=== PATIENT | female | born 1985 | race Caucasian/White ===

== ENCOUNTER 2017-06-25 17:59 | Emergency (ER) | payer OTHER, MEDICAID ==
[~2017-06-25] VITALS: Ht 162.6 cm; Wt 93.0 kg
[~2017-06-25 17:59] MED LIST: ACETAMINOPHEN-1 EAC1 PO; NAPROSYN500 MG PO; PHENERGAN 25 MG25 MG PO; PREDNISONE 20 M20 MG PO; PROAIR HFA8.5 GM INH; PROMETHAZINE D480 ML PO; ZPAK PO
[2017-06-25 18:09] VITALS: BP 134/83
[2017-06-25] MEDS ORDERED: PROMETHAZINE V473 ML PO (18:26)
[2017-06-25] MEDS ORDERED: ACETAMINOPHEN-1 EAC1 PO (18:26)
[2017-06-25] MEDS ORDERED: PROAIR HFA8.5 GM INH (18:26)
[2017-06-25] MEDS ORDERED: TESSALON PERLE100 MG PO (18:26)
[2017-06-25] MEDS ORDERED: CLARITIN10 MG PO (18:27)
== END 2017-06-25 18:37 | disposition home or self-care (01) ==
LOC: M.ERS 17:59
DX: J06.9 Acute upper respiratory infection, unspecified (principal); B97.89 Other viral agents as the cause of diseases classified elsewhere; Z98.890 Other specified postprocedural states; Z88.1 Allergy status to other antibiotic agents

== ENCOUNTER 2017-07-15 20:10 | Emergency (ER) | payer OTHER, MEDICAID ==
[~2017-07-15] VITALS: Ht 160 cm; Wt 93.0 kg
[~2017-07-15 20:10] MED LIST changes: +CLARITIN10 MG PO; +PROMETHAZINE V473 ML PO; +TESSALON PERLE100 MG PO
[2017-07-15 20:23] VITALS: BP 131/88
[2017-07-15] MEDS ORDERED: SSD CREAM 1% 5050 GM TOP (20:37)
[2017-07-15] MEDS ORDERED: IBUPROFEN 800800 M1 PO (20:38)
== END 2017-07-15 20:42 | disposition home or self-care (01) ==
LOC: M.ERS 20:10
DX: T24.112A Burn of first degree of left thigh, initial encounter (principal); Z98.890 Other specified postprocedural states; X12.XXXA Contact with other hot fluids, initial encounter; Y93.89 Activity, other specified; Y92.89 Other specified places as the place of occurrence of the external cause; Y99.8 Other external cause status

== ENCOUNTER 2018-10-03 21:30 | Emergency (ER) | payer OTHER, MEDICAID ==
[~2018-10-03] VITALS: Ht 162.6 cm; Wt 95.3 kg
[~2018-10-03 21:30] MED LIST changes: +IBUPROFEN 800800 M1 PO; +SSD CREAM 1% 5050 GM TOP
[2018-10-03 22:32] LABS: INFLUENZA A ANTIGEN None Detected (None Detect); INFLUENZA B ANTIGEN None Detected (None Detect)
[2018-10-03 22:59] VITALS: BP 127/77
== END 2018-10-03 22:59 | disposition home or self-care (01) ==
LOC: M.ERS 21:30
PROVIDERS: Nurse Practitioner Family
DX: J06.9 Acute upper respiratory infection, unspecified (principal); Z88.0 Allergy status to penicillin; Z90.49 Acquired absence of other specified parts of digestive tract; Z98.890 Other specified postprocedural states

== ENCOUNTER 2018-10-23 20:01 | Emergency (ER) | payer OTHER, MEDICAID ==
[~2018-10-23] VITALS: Ht 162.6 cm; Wt 93.0 kg
[2018-10-23 20:13] VITALS: BP 144/84
[2018-10-23] MEDS ORDERED: CLARITIN10 MG PO (20:21)
== END 2018-10-23 20:28 | disposition home or self-care (01) ==
LOC: M.ERS 20:01
DX: J30.9 Allergic rhinitis, unspecified (principal); F17.210 Nicotine dependence, cigarettes, uncomplicated; Z98.890 Other specified postprocedural states; Z90.49 Acquired absence of other specified parts of digestive tract; Z88.1 Allergy status to other antibiotic agents

== ENCOUNTER 2019-01-06 15:27 | Emergency (ER) | payer OTHER, MEDICAID ==
[~2019-01-06] VITALS: Ht 162.6 cm; Wt 92.5 kg
[2019-01-06] MEDS ORDERED: BACTRIM DS TAB1 EACH PO (15:38)
[2019-01-06 16:15] LABS: URINE BILIRUBIN NEGATIVE (Negative); URINE BLOOD TRACE (Negative); URINE CLARITY CLEAR; URINE COLOR YELLOW; URINE GLUCOSE-RANDOM NEGATIVE (Negative); URINE KETONES NEGATIVE (Negative); URINE LEUKOCYTES-REFLEX NEGATIVE (Negative); URINE NITRITE-REFLEX NEGATIVE (Negative); URINE PROTEIN NEGATIVE (Negative); URINE SPECIFIC GRAVITY >= 1.030 (1.005-1.030); URINE UROBILINOGEN 0.2 E.U./dl (0.2-1.0)
[2019-01-06 16:34] LABS: ABSOLUTE BASOPHILS 0.1 thou/uL (0.0-0.2); ABSOLUTE EOSINOPHILS 0.5 thou/uL (0.0-0.7); ABSOLUTE LYMPHOCYTES 2.7 thou/uL (0.8-5.3); ABSOLUTE MONOCYTES 1.3 thou/uL (0.0-1.2); ABSOLUTE NEUTROPHILS 4.9 thou/uL (1.6-8.1); BASOPHILS 0.9 %; EOSINOPHILS 5.2 %; HEMATOCRIT 38.9 % (37.0-47.0); HEMOGLOBIN 12.9 gm/dL (12.0-15.0); LYMPHOCYTES 28.9 %; MCH 28.4 pg (26.0-34.0); MCHC 33.2 g/dL (28.0-37.0); MCV 85.4 fL (80.0-100.0); MONOCYTES 13.6 %; MPV 7.4 fl. (7.2-11.1); NUCLEATED RBCS 0 /100WBC; PLATELET COUNT* 236 thou/uL (150-400); POLYS 51.4 %; RBC 4.55 mil/uL (4.20-5.00); RDW-CV 16.4 % (10.5-14.5); WBC 9.5 thou/uL (4.0-11.0)
[2019-01-06 16:42] LABS: CALCIUM 8.8 mg/dL (8.5-10.1); CREATININE 0.7 mg/dL (0.6-1.3)
[2019-01-06 16:47] LABS: ALBUMIN 3.7 g/dL (3.4-5.0); TOTAL BILIRUBIN 0.2 mg/dL (<0.1-1.0); TOTAL PROTEIN 7.6 g/dL (6.4-8.2)
[2019-01-06 17:40] VITALS: BP 134/72
[2019-01-06] MEDS ORDERED: NABUMETONE 750750 M1 PO (17:54)
[2019-01-06] MEDS ORDERED: PYRIDIUM100 M1 PO (17:54)
[2019-01-06] MEDS ORDERED: MIRALAX17 GM PO (17:54)
== END 2019-01-06 17:40 | disposition home or self-care (01) ==
LOC: M.ERS 15:27
PROVIDERS: Nurse Practitioner Family
DX: K59.00 Constipation, unspecified (principal); R30.0 Dysuria; Z90.49 Acquired absence of other specified parts of digestive tract; Z98.890 Other specified postprocedural states; Z88.1 Allergy status to other antibiotic agents

== ENCOUNTER 2020-01-01 22:53 | Emergency (ER) | payer OTHER, MEDICAID ==
[~2020-01-01] VITALS: Ht 160 cm; Wt 101.2 kg
[~2020-01-01 22:53] MED LIST changes: +BACTRIM DS TAB1 EACH PO; +MIRALAX17 GM PO; +NABUMETONE 750750 M1 PO; +PYRIDIUM100 M1 PO
[2020-01-02] MEDS ORDERED: MUPIROCIN15 GM TOP (00:12)
[2020-01-02] MEDS ORDERED: DOXYCYCLINE 10100 MG PO (00:12)
[2020-01-02 00:26] VITALS: BP 128/70
== END 2020-01-02 00:26 | disposition home or self-care (01) ==
LOC: M.ERS 22:53
DX: L03.114 Cellulitis of left upper limb (principal); F17.210 Nicotine dependence, cigarettes, uncomplicated; Z90.49 Acquired absence of other specified parts of digestive tract; Z90.89 Acquired absence of other organs; Z98.890 Other specified postprocedural states; Z88.1 Allergy status to other antibiotic agents

== ENCOUNTER 2020-01-29 17:07 | Emergency (ER) | payer MEDICAID ==
[~2020-01-29] VITALS: Ht 160 cm; Wt 99.3 kg
[~2020-01-29 17:07] MED LIST changes: +DOXYCYCLINE 10100 MG PO; +MUPIROCIN15 GM TOP
[2020-01-29 17:37] LABS: URINE BILIRUBIN NEGATIVE (Negative); URINE BLOOD 3+ (Negative); URINE CLARITY CLEAR; URINE COLOR YELLOW; URINE GLUCOSE-RANDOM NEGATIVE (Negative); URINE KETONES NEGATIVE (Negative); URINE LEUKOCYTES-REFLEX NEGATIVE (Negative); URINE NITRITE-REFLEX NEGATIVE (Negative); URINE PROTEIN NEGATIVE (Negative); URINE SPECIFIC GRAVITY <= 1.005 (1.005-1.030); URINE UROBILINOGEN 0.2 E.U./dl (0.2-1.0)
[2020-01-29 17:45] LABS: BACTERIA-REFLEX 1-9 Few /HPF (None Seen); CRYSTALS None Seen /LPF (None Seen); MUCUS None Seen strn/LPF (None Seen); SQUAMOUS >10 Many /LPF (0-3); URINE RBC 3-10 Few /HPF (0-2)
[2020-01-29 17:46] LABS: CASTS None Seen /LPF (None Seen); URINE WBC-REFLEX None Seen /HPF (0-5)
[2020-01-29 18:24] VITALS: BP 146/89
== END 2020-01-29 18:24 | disposition home or self-care (01) ==
LOC: M.ERS 17:07
PROVIDERS: Physician Assistant
DX: N63.20 Unspecified lump in the left breast, unspecified quadrant (principal); Z32.02 Encounter for pregnancy test, result negative; Z88.1 Allergy status to other antibiotic agents; Z98.890 Other specified postprocedural states; Z90.49 Acquired absence of other specified parts of digestive tract

== ENCOUNTER → 2020-02-13 | Outpatient (CLI) | payer MEDICAID | LOC: M.RAD 13:59 | PROVIDERS: ATTEND Nurse Practitioner Family | DX: Z12.31 Encounter for screening mammogram for malignant neoplasm of breast (principal) ==

== ENCOUNTER 2020-04-26 15:54 | Emergency (ER) | payer MEDICAID ==
[~2020-04-26] VITALS: Ht 160 cm; Wt 95.3 kg
[2020-04-26 16:15] VITALS: BP 148/86
== END 2020-04-26 16:53 | disposition home or self-care (01) ==
LOC: M.ERS 15:54
DX: U07.1 COVID-19 (principal); F17.210 Nicotine dependence, cigarettes, uncomplicated; Z98.890 Other specified postprocedural states; Z90.49 Acquired absence of other specified parts of digestive tract; Z98.51 Tubal ligation status; Z88.1 Allergy status to other antibiotic agents

== ENCOUNTER 2021-05-28 00:33 | Emergency (ER) | payer OTHER ==
[~2021-05-28] VITALS: Ht 160 cm; Wt 99.8 kg
[2021-05-28 03:09] VITALS: BP 132/68
== END 2021-05-28 03:09 | disposition home or self-care (01) ==
LOC: M.ERS 00:33
DX: U07.1 COVID-19 (principal); F17.210 Nicotine dependence, cigarettes, uncomplicated; Z90.49 Acquired absence of other specified parts of digestive tract; Z98.51 Tubal ligation status; Z88.0 Allergy status to penicillin